=== PATIENT | female | born 2000 | race Two or more races ===

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

== ENCOUNTER 2021-07-05 13:23 | Emergency (ER) | payer OTHER ==
[~2021-07-05] VITALS: Ht 170.2 cm; Wt 59.4 kg
[2021-07-05] MEDS ORDERED: ZITHROMAX500 MG PO (15:55)
[2021-07-05] MEDS ORDERED: TUSICOF CAPLET1 EACH PO (15:55)
== END 2021-07-05 16:37 | disposition home or self-care (01) ==
LOC: EMR PED 13:23
DX: J06.9 Acute upper respiratory infection, unspecified (principal); B96.0 Mycoplasma pneumoniae [M. pneumoniae] as the cause of diseases classified elsewhere; Z03.818 Encounter for observation for suspected exposure to other biological agents ruled out

== ENCOUNTER → 2023-02-06 | Emergency (ER) | payer OTHER ==
[~2023-02-06] VITALS: Ht 167.6 cm; Wt 57.6 kg
[~2023-02-06] MED LIST: ONDANSETRON ODT8 MG PO; PEPCID AC20 MG PO; TUSICOF CAPLET1 EACH PO; ZITHROMAX500 MG PO
== END | disposition home or self-care (01) ==
LOC: ER 13:49
DX: R11.2 Nausea with vomiting, unspecified (principal); R19.7 Diarrhea, unspecified; K52.89 Other specified noninfective gastroenteritis and colitis

== ENCOUNTER 2023-06-03 12:52 | Emergency (ER) | payer OTHER ==
[~2023-06-03] VITALS: Ht 167.6 cm; Wt 59.0 kg
[2023-06-03 16:33] LABS: HEMATOCRIT 36.7 % (36.0-45.00); HEMOGLOBIN 12.7 g/dL (12.0-15.00); MEAN CELL VOLUME 90.6 fL (80.00-100.00); MEAN CORPUSCULAR HEMOGLOBIN 31.4 pg (27.00-32.0); MEAN CORPUSCULAR HGB CONC 34.6 g/dl (32.0-36.0); PLATELET COUNT 220 K/uL (150-450); RED BLOOD COUNT 4.05 M/uL (4.00-6.00); RED CELL DISTRIBUTION WIDTH 13.6 % (11.5-14.5)
[2023-06-03] MEDS ORDERED: ZYRTEC10 MG PO (17:47)
[2023-06-03] MEDS ORDERED: BENZONATATE100 MG PO (17:47)
== END 2023-06-03 18:00 | disposition home or self-care (01) ==
LOC: ER 12:52
PROVIDERS: Nurse Practitioner Family
DX: R53.81 Other malaise (principal); J06.9 Acute upper respiratory infection, unspecified; Z20.822 Contact with and (suspected) exposure to COVID-19

== ENCOUNTER 2023-06-24 23:00 | Emergency (ER) | payer OTHER ==
[~2023-06-24] VITALS: Ht 167.6 cm; Wt 59.0 kg
[~2023-06-24 23:00] MED LIST changes: +BENZONATATE100 MG PO; +ZYRTEC10 MG PO
[2023-06-25 02:05] LABS: HEMATOCRIT 35.1 % (36.0-45.00); HEMOGLOBIN 11.5 g/dL (12.0-15.00); MEAN CELL VOLUME 92.3 fL (80.00-100.00); MEAN CORPUSCULAR HEMOGLOBIN 30.2 pg (27.00-32.0); MEAN CORPUSCULAR HGB CONC 32.7 g/dl (32.0-36.0); PLATELET COUNT 250 K/uL (150-450); RED CELL DISTRIBUTION WIDTH 13.1 % (11.5-14.5)
[2023-06-25 02:20] LABS: INR 1.09; PARTIAL THROMBOPLASTIN TIME 30.1 SECONDS (22.0-34.0); PROTHROMBIN TIME 11.4 SECONDS (9.0-11.5)
[2023-06-25 02:26] LABS: ALBUMIN 3.8 gm/dL (3.4-5.0); BILIRUBIN TOTAL 0.56 mg/dL (0.3-1.2); CALCIUM 8.8 mg/dL (8.5-10.1); CREATININE SERUM 0.7 mg/dL (0.55-1.02); GFR 104.64; GLOBULINA 3.2 G/DL (2.4-3.5); POTASSIUM 3.8 mEq/L (3.5-5.1)
== END 2023-06-25 05:00 | disposition home or self-care (01) ==
LOC: ER
PROVIDERS: General Practice
DX: N93.8 Other specified abnormal uterine and vaginal bleeding (principal)

== ENCOUNTER 2023-12-15 22:48 | Emergency (ER) | payer OTHER ==
[~2023-12-15] VITALS: Ht 167.6 cm; Wt 59.0 kg
[2023-12-15 23:55] LABS: URINE APPEARANCE Clear; URINE BILIRRUBIN Negative (NEGATIVE); URINE BLOOD Negative; URINE COLOR Yellow; URINE GLUCOSE Negative (NEGATIVE); URINE LEUKOCYTE Moderate; URINE NITRATE Negative; URINE PROTEIN Negative (NEGATIVE)
[2023-12-15 23:59] LABS: URINE BACTERIA 516.5 uL (0.0-1933); URINE EPITHELIAL CELLS 32.4 uL (0.0-38.8); URINE RBC 23.9 uL (0.0-20.8); URINE WBC 165.7 uL (0.0-23.2)
[2023-12-16] MEDS ORDERED: CEFAZOLIN SODIUM 1,000 MG VIAL IM STA (01:55)
== END 2023-12-16 02:15 | disposition home or self-care (01) ==
LOC: ER 22:48
DX: R30.0 Dysuria (principal); N39.0 Urinary tract infection, site not specified

== ENCOUNTER 2024-06-13 16:51 | Emergency (ER) | payer OTHER ==
[~2024-06-13] VITALS: Ht 167.6 cm; Wt 63.5 kg
[2024-06-13] MEDS ORDERED: CEFTRIAXONE SODIUM 1,000 MG VIAL IV ONE (19:00)
[2024-06-13] MEDS ORDERED: ONDANSETRON HCL 2 MG/ML VIAL IV ONE (19:00)
[2024-06-13] MEDS ORDERED: ACETAMINOPHEN 500 MG GEL..CAP PO ONE (19:00)
[2024-06-13] MEDS ORDERED: AMOXICILLIN875 MG PO (19:37)
[2024-06-13] MEDS ORDERED: KETOROLAC TROMETHAMINE 30 MG VIAL IM ONE (19:45)
== END 2024-06-13 19:53 | disposition home or self-care (01) ==
LOC: ER 16:52
DX: R53.81 Other malaise (principal); J03.90 Acute tonsillitis, unspecified

== ENCOUNTER → 2025-03-12 | Emergency (ER) | payer OTHER ==
[~2025-03-12] VITALS: Ht 152.4 cm; Wt 70.3 kg
[~2025-03-12] MED LIST changes: +AMOXICILLIN875 MG PO; +KETO10TA2 PO; +KETOROLAC TROMETHAMINE 10 MG TABLET PO STA
== END | disposition home or self-care (01) ==
LOC: ER 03:31
DX: S49.82XA Other specified injuries of left shoulder and upper arm, initial encounter (principal); V49.9XXA Car occupant (driver) (passenger) injured in unspecified traffic accident, initial encounter; Y93.I9 Activity, other involving external motion; Y92.413 State road as the place of occurrence of the external cause